=== PATIENT | male | born 1980 | race Caucasian/White ===

== ENCOUNTER 2024-08-31 11:43 | Inpatient (IN) | payer OTHER ==
[~2024-08-31] VITALS: Ht 182.9 cm; Wt 110.0 kg
[2024-08-31 12:55] LABS: BASOPHILS % (AUTO) 0.5 % (0.0-2.0); EOSINOPHILS % (AUTO) 0.1 % (1.0-6.0); HEMATOCRIT 40.1 % (41-53); HEMOGLOBIN 13.5 g/dL (13.5-17.5); LYMPHOCYTES # (AUTO) 0.8 K/uL (1.0-4.8); LYMPHOCYTES % (AUTO) 12.3 % (22.0-44.0); MEAN CORPUSCULAR HEMOGLOBIN 30.2 pg (26.0-34.0); MEAN CORPUSCULAR HGB CONC 33.6 G/dL (31.0-37.0); MEAN CORPUSCULAR VOLUME 90 fL (80-100); MONOCYTES # (AUTO) 0.2 K/uL (0.1-1.0); MONOCYTES % (AUTO) 3.5 % (2.0-9.0); NEUTROPHILS # (AUTO) 5.8 K/uL (1.8-7.7); NEUTROPHILS % (AUTO) 83.6 % (40.0-70.0); PLATELET COUNT (AUTO) 244 K/uL (150-450); RED BLOOD CELL COUNT(AUTO) 4.46 MIL/uL (4.50-5.90); WHITE BLOOD COUNT (AUTO) 6.9 K/uL (4.5-11.0)
[2024-08-31 13:01] LABS: ANION GAP 9 mmol/L (8-16); CALCIUM, TOTAL 9.1 mg/dL (8.8-10.5); CARBON DIOXIDE 27 mmol/L (22-29); CHLORIDE 102 mmol/L (98-107); CREATININE 0.66 mg/dL (0.60-1.30); GLOMERULAR FILTR. RATE CALC > 60 mL/min (>60); GLUCOSE,RANDOM 103 mg/dL (70-110); POTASSIUM 3.8 mmol/L (3.5-5.1); SODIUM SERUM 138 mmol/L (136-145); UREA NITROGEN, BLOOD 8 mg/dL (7-18)
[2024-08-31 13:08] LABS: ALBUMIN 3.5 g/dL (3.4-5.0); BILIRUBIN,DIRECT 0.3 mg/dL (0.00-0.20); TOTAL PROTEIN, SERUM 6.7 g/dL (6.4-8.2)
[2024-08-31] MEDS: KETOROLAC TROMETHAMINE 30 MG/ML VIAL IVP ONE (13:52)
[2024-08-31] MEDS: LIDOCAINE 5% TRANSDERMAL PATCH TD ONE (13:52)
[2024-08-31] MEDS: ACETAMINOPHEN 325 MG TABLET PO ONE (13:52)
[2024-08-31] MEDS ORDERED: LISI20TA24 PO (14:13)
[2024-08-31] MEDS ORDERED: MAG HYDROX/ALUMINUM HYD/SIMETH ES 30 ML SUSPENSION UDCUP PO PRN (17:00)
[2024-08-31] MEDS ORDERED: PROMETHAZINE HCL 25 MG TABLET PO PRN (17:00)
[2024-08-31] MEDS ORDERED: IBUPROFEN 600 MG TABLET PO PRN (17:00)
[2024-08-31] MEDS ORDERED: DICYCLOMINE HCL 10 MG CAPSULE PO PRN (17:00)
[2024-08-31] MEDS ORDERED: BISACODYL 10 MG RECTAL RECTAL SUPPOSITORY PR PRN (17:00)
[2024-08-31] MEDS ORDERED: IPRATROPIUM BROMIDE 0.5 MG/2.5 ML NEB SOLUTION NEB PRN (17:00)
[2024-08-31] MEDS ORDERED: LOPERAMIDE HCL 2 MG/15 ML SUSPENSION UDCUP PO PRN (17:00)
[2024-08-31] MEDS ORDERED: ACETAMINOPHEN 325 MG TABLET PO PRN (17:00)
[2024-08-31] MEDS ORDERED: HydrOXYzine PAMOATE 50 MG CAPSULE PO PRN (17:00)
[2024-08-31] MEDS ORDERED: ALBUTEROL SULFATE 2.5 MG/0.5 ML NEB SOLUTION NEB PRN (17:00)
[2024-08-31] MEDS ORDERED: MAGNESIUM HYDROXIDE SUSPENSION 30 ML UDCUP PO PRN (17:00)
[2024-08-31 17:21] VITALS: BP 141/89; PULSE 61; RESP 20; TEMP 97.8; O2SAT 100
[2024-08-31 17:26] LABS: PH,URINE DRUG SCREEN 8.5 (5.0-8.0)
[2024-08-31 17:28] LABS: ALCOHOL, URINE DRUG SCREEN NEGATIVE (NEGATIVE); AMPHET/METH SCREEN,URINE POSITIVE (NEGATIVE); BARBITURATE SCREEN, URINE NEGATIVE (NEGATIVE); BENZODIAZEPINES SCREEN,URINE NEGATIVE (NEGATIVE); CANNABINOID SCREEN,URINE POSITIVE (NEGATIVE); COCAINE SCREEN,URINE NEGATIVE (NEGATIVE); METHADONE SCREEN, URINE NEGATIVE (NEGATIVE); OPIATE SCREEN,URINE NEGATIVE (NEGATIVE); PHENCYCLIDINE SCREEN,URINE NEGATIVE (NEGATIVE)
[2024-08-31] MEDS: SODIUM CHLORIDE 0.45% 1,000 ML IV SCH (18:47)
[2024-08-31 19:47] VITALS: BP 133/76; PULSE 83; RESP 18; TEMP 98.1; O2SAT 98
[2024-08-31] MEDS: LORazepam 1 MG TABLET PO PRN (20:30)
[2024-08-31] MEDS: DOCUSATE SODIUM 100 MG CAPSULE PO SCH (20:30)
[2024-09-01] MEDS: HEPARIN SODIUM,PORCINE 5,000 UNITS/ML VIAL SQ SCH (00:08)
[2024-09-01 04:18] VITALS: BP 129/87; PULSE 78; RESP 18; TEMP 98; O2SAT 98
[2024-09-01] MEDS: HYDROCODONE/ACETAMINOPHEN 5-325 MG TABLET PO PRN (04:18)
[2024-09-01 07:40] VITALS: BP 151/88; PULSE 79; RESP 20; TEMP 97.3; O2SAT 100
[2024-09-01] MEDS: MORPHINE SULFATE 2 MG/ML SYRINGE IVP PRN (08:16)
[2024-09-01] MEDS: PANTOPRAZOLE SODIUM 40 MG/VIAL IVP SCH (08:23)
[2024-09-01] MEDS: LISINOPRIL 20 MG TABLET PO SCH (08:24)
[2024-09-01] MEDS ORDERED: LISINOPRIL 20 MG TABLET PO SCH (09:00)
[2024-09-01 18:37] VITALS: BP 150/84; PULSE 82; RESP 19; TEMP 98.1; O2SAT 100
[2024-09-01 18:44] VITALS: BP 150/84; PULSE 82; RESP 19; TEMP 98.1; O2SAT 100
[2024-09-01 19:29] VITALS: BP 146/91; PULSE 79; RESP 18; TEMP 98.4; O2SAT 99
[2024-09-01] MEDS: ZOLPIDEM TARTRATE 5 MG TABLET PO PRN (23:33)
[2024-09-02 01:02] VITALS: BP 146/97; PULSE 71; RESP 16; TEMP 98.2; O2SAT 96
[2024-09-02 04:35] VITALS: BP 134/84; PULSE 69; RESP 18; TEMP 97.7; O2SAT 97
[2024-09-02 06:11] VITALS: BP 152/85; PULSE 87; RESP 20; TEMP 97.9; O2SAT 100
[2024-09-02] MEDS: CloNIDine HCL 0.1 MG TABLET PO PRN (06:15)
[2024-09-02 08:16] VITALS: BP 124/84; PULSE 64; RESP 18; TEMP 98.4; O2SAT 95
[2024-09-02] MEDS: BACLOFEN 10 MG TABLET PO PRN (09:51)
[2024-09-02 19:41] VITALS: BP 116/71; PULSE 82; RESP 19; TEMP 98.1; O2SAT 100
[2024-09-02] MEDS: TraZODone HCL 50 MG TABLET PO PRN (20:30)
[2024-09-02 22:31] VITALS: BP 150/99; PULSE 69; RESP 20; TEMP 98.6; O2SAT 99
[2024-09-03 05:51] VITALS: BP 120/82; PULSE 71; RESP 20; TEMP 97.8; O2SAT 100
[2024-09-03 08:57] VITALS: BP 126/72; PULSE 64; RESP 18; TEMP 98; O2SAT 98
[2024-09-03] MEDS: ACETAMINOPHEN 325 MG TABLET PO PRN (10:42)
[2024-09-03 16:09] VITALS: BP 148/98; PULSE 81; RESP 18; O2SAT 99
[2024-09-03 19:53] VITALS: BP 151/98; PULSE 83; RESP 19; TEMP 98.1; O2SAT 98
[2024-09-03] MEDS: ONDANSETRON HCL 4 MG/2 ML VIAL IVP PRN (21:03)
[2024-09-04 04:53] VITALS: BP 146/93; PULSE 72; RESP 18; TEMP 97.9; O2SAT 98
[2024-09-04 07:38] VITALS: BP 120/79; PULSE 67; RESP 18; TEMP 98.6; O2SAT 100
== END 2024-09-04 13:45 | DRG 897 ==
LOC: EMS 11:43 → EDH 15:36 → 6S 17:07
PROVIDERS: ADMIT Hospitalist; ATTEND Hospitalist
DX: F11.13 Opioid abuse with withdrawal (principal); M54.9 Dorsalgia, unspecified; M25.551 Pain in right hip; M25.552 Pain in left hip; G89.29 Other chronic pain; I10 Essential (primary) hypertension; Z88.0 Allergy status to penicillin; Z88.8 Allergy status to other drugs, medicaments and biological substances
CPT/HCPCS: 73503; 80048; 80076; 80307; 85025; 99285; J1644; J1885; J2270; J2405; J2470